=== PATIENT | female | born 1990 | race Caucasian/White ===

== ENCOUNTER 2020-07-14 15:32 | Emergency (ER) | payer OTHER ==
[~2020-07-14] VITALS: Ht 165.1 cm; Wt 95.7 kg
[2020-07-14 16:28] LABS: BASO # 0.1 10^3/uL (0.0-0.2); BASO % 0.7 % (0.0-1.0); EOS # 0.2 10^3/uL (0.0-0.5); EOS % 2.6 % (0.0-3.0); HEMATOCRIT 44.4 % (36.0-47.0); HEMOGLOBIN 14.7 g/dl (12.0-15.5); LYMPH # 2.1 10^3/uL (1.5-5.0); MEAN CORPUSCULAR HEMOGLOBIN 30.8 pg (27.0-33.0); MEAN CORPUSCULAR HGB CONC 33.1 g/dl (32.0-36.5); MEAN CORPUSCULAR VOLUME 92.9 fl (80.0-96.0); MONO # 0.4 10^3/uL (0.0-0.8); MONO % 5.9 % (0.0-5.0); NEUTROPHILS # 4.1 10^3/uL (1.5-8.5); NEUTROPHILS % 60.5 % (36.0-66.0); PLATELET COUNT, AUTOMATED 331 10^3/uL (150-450); RED BLOOD COUNT 4.78 10^6/uL (4.00-5.40); WHITE BLOOD COUNT 6.8 10^3/uL (4.0-10.0)
[2020-07-14 16:55] LABS: ALBUMIN 4.3 GM/DL (3.2-5.2); ALT/SGPT 19 U/L (12-78); BILIRUBIN,DIRECT < 0.1 MG/DL (0.0-0.2); BILIRUBIN,TOTAL 0.3 MG/DL (0.2-1.0); LIPASE 164 U/L (73-393); TOTAL PROTEIN 8.2 GM/DL (6.4-8.2)
--- NOTE | 2020-07-14 19:07 | REPVR ---
PROCEDURE INFORMATION: Exam: US Pelvis Complete, Transabdominal and US Pelvis, Transvaginal Exam date and time: 07/14/2020 6:49 PM Age: 29 years old Clinical indication: Abdominal pain; Right lower quadrant; Additional info: Rlq pain/abn bleeding TECHNIQUE: Imaging protocol: Real-time transabdominal and transvaginal pelvic ultrasound (complete) with image documentation. Transvaginal imaging was used for better evaluation of the endometrium, adnexa, and/or cervix. COMPARISON: No relevant prior studies available. FINDINGS: Uterus/cervix: The uterus is globular in configuration in the margins are not clearly delineated transabdominally. Endovaginally, the uterus is retroverted and retroflexed measuring at least 7.1 x 4 by 5.9 cm. The endometrial stripe measures 0.6 cm in thickness. Right adnexa: Transabdominally, the right ovary measures 2.8 by 3.1 x 2.2 cm. Endovaginally, the right ovary measures 2.7 x 1.6 by 2.2 cm. Multiple follicles are noted. Arterial blood flow demonstrated in the right ovary on pulse Doppler examination. Left adnexa: Transabdominally, the left ovary measures 2.7 x 2.1 by 2.4 cm. Endovaginally, the left ovary measures 1.8 by 3.1 x 2.3 cm and contains multiple subcentimeter follicles. Arterial blood flow seen in the left ovary on pulse Doppler examination. Intraperitoneal space: Small amount of free fluid noted adjacent to the left ovary. Urinary bladder: Transabdominally, the bladder is poorly distended which limits visualization of the uterus and the adnexa. IMPRESSION: 1. Normal ultrasound of the pelvis for menstruating female. Electronically signed by: Leilani Strange On 07/14/2020 19:07:09 PM
[2020-07-14 19:22] VITALS: BP 128/84
== END 2020-07-14 19:25 | disposition home or self-care (01) ==
LOC: M ED 15:32
DX: N92.6 Irregular menstruation, unspecified (principal); K21.9 Gastro-esophageal reflux disease without esophagitis; F32.9 Major depressive disorder, single episode, unspecified; F41.9 Anxiety disorder, unspecified; Z88.1 Allergy status to other antibiotic agents; Z88.2 Allergy status to sulfonamides

== ENCOUNTER 2021-01-16 06:21 | Observation (INO) | payer OTHER ==
[~2021-01-16] VITALS: Ht 165.1 cm; Wt 98.4 kg
[~2021-01-16 06:21] MED LIST: ACETAMINOPHEN 500 MG TAB PO ONE; GABAPENTIN 300 MG CAP PO ONE; LEXA1TAB2 PO; LR 1,000 ML IV ONE; ceFAZolin SOD 2 GM in IV 1 EA IV ONE
[2021-01-16 06:51] LABS: HEMATOCRIT 39.7 % (36.0-47.0); HEMOGLOBIN 13.3 g/dl (12.0-15.5); MEAN CORPUSCULAR HGB CONC 33.5 g/dl (32.0-36.5); MEAN CORPUSCULAR VOLUME 92.5 fl (80.0-96.0); PLATELET COUNT, AUTOMATED 271 10^3/uL (150-450); RED BLOOD COUNT 4.29 10^6/uL (4.00-5.40); WHITE BLOOD COUNT 5.6 10^3/uL (4.0-10.0)
[2021-01-16] MEDS ORDERED: METOCLOPRAMIDE INJ 10MG/2ML VIAL (J2765 PER 1) As Ordered ONE (07:02)
[2021-01-16] MEDS ORDERED: ROCURONIUM BROMIDE 50 MG/5 ML VIAL As Ordered ONE (07:02)
[2021-01-16] MEDS ORDERED: LIDOCAINE 2% INJ 100 MG/5 ML SYRINGE As Ordered ONE (07:02)
[2021-01-16] MEDS ORDERED: propofoL 200 MG/20 ML VIAL As Ordered ONE (07:02)
[2021-01-16] MEDS ORDERED: fentaNYL 100 MCG/2 ML INJECTION (J3010) As Ordered ONE (07:03)
[2021-01-16] MEDS ORDERED: MORPHINE 10 MG/ML 1ML VIAL (J2270) As Ordered ONE (07:03)
[2021-01-16] MEDS ORDERED: MIDAZOLAM INJ 2MG/2ML VIAL (J2250 PER 1MG) As Ordered ONE (07:07)
[2021-01-16] MEDS ORDERED: FLUORESCEIN 10% (100MG/ML) 5 ML VIAL As Ordered ONE (07:08)
[2021-01-16] MEDS ORDERED: BUPIVACAINE HCL 0.5% 30 ML VIAL As Ordered ONE (07:09)
[2021-01-16 07:20] LABS: BLOOD UREA NITROGEN 8 MG/DL (7-18); CARBON DIOXIDE LEVEL 29 MEQ/L (21-32); CHLORIDE LEVEL 109 MEQ/L (98-107); CREATININE FOR GFR 0.82 MG/DL (0.55-1.30); GLOMERULAR FILTRATION RATE > 60.0 (>60); GLUCOSE, FASTING 89 MG/DL (70-100); POTASSIUM SERUM 3.8 MEQ/L (3.5-5.1); SODIUM LEVEL 141 MEQ/L (136-145)
[2021-01-16 07:27] LABS: HCG, SERUM QUALITATIVE NEGATIVE (NEGATIVE)
[2021-01-16] MEDS ORDERED: ONDANSETRON 4MG/2ML VIAL As Ordered ONE ×4 (08:38→10:08)
[2021-01-16] MEDS ORDERED: GLYCOPYRROLATE INJ 0.2 MG/ML 2 ML VIAL As Ordered ONE (09:28)
[2021-01-16] MEDS ORDERED: SUGAMMADEX SODIUM 500 MG/5 ML VIAL (BRIDION) As Ordered ONE (09:48)
[2021-01-16] MEDS ORDERED: KETOROLAC 60MG 2ML VIAL As Ordered ONE (10:04)
[2021-01-16] MEDS ORDERED: PROMETHAZINE 25 MG TAB PO PRN (10:30)
[2021-01-16] MEDS ORDERED: SIMETHICONE 80MG CHEW TAB PO PRN (10:30)
[2021-01-16] MEDS ORDERED: LR 1,000 ML IV SCH (10:55)
[2021-01-16] MEDS ORDERED: ONDANSETRON 4MG/2ML VIAL IV PRN (10:55)
[2021-01-16] MEDS ORDERED: oxyCODONE 5MG TAB PO PRN (10:55)
[2021-01-16] MEDS: LR 1,000 ML IV SCH ×3 (11:15→18:24)
[2021-01-16] MEDS: fentaNYL 100 MCG/2 ML INJECTION (J3010) IV PRN ×2 (11:16→11:33)
[2021-01-16] MEDS ORDERED: METOCLOPRAMIDE INJ 10MG/2ML VIAL (J2765 PER 1) IV PRN (11:50)
[2021-01-16] MEDS ORDERED: PROMETHAZINE INJ 25 MG/ML VIAL (J2550) IV PRN (11:50)
--- NOTE | 2021-01-16 12:23 | RO ---
OPERATIVE NOTE DATE OF OPERATION: 01/16/2021 PREOPERATIVE DIAGNOSIS: Severe dysmenorrhea, menorrhagia, and AZAM 3. POSTOPERATIVE DIAGNOSIS: Severe dysmenorrhea, menorrhagia, and AZAM 3. PROCEDURE: Total laparoscopic hysterectomy and cystoscopy. SURGEON: Yosvany Zuleta DO [employer] K[employer] MAKER: Therese Vu MD ANESTHESIA: General anesthesia. IV FLUIDS: 1300 mL LR. URINE OUTPUT: 200 mL via Murillo catheter. EBL: 75 mL. ANTIBIOTICS: 2 gm Ancef before case start. OPERATIVE FINDINGS: Uterus slightly globular appearing, surgically absent fallopian tubes bilaterally. Normal appearing ovaries. Liver appeared normal. COMPLICATIONS: None. DESCRIPTION OF PROCEDURE: The risks, benefits, indications, and alternatives to the procedure were reviewed with the patient and informed consent was obtained. The patient was taken to the operating room and general anesthesia was obtained without difficulty. The patient was placed in the lithotomy position using gel padded Tim stirrups. The patient's arms were then gently tucked to the sides with padding. The patient was prepped and draped in usual sterile fashion and a murillo catheter was placed to drain the bladder. A surgical time out was then performed and the patient's identity and planned procedure were verified with the operative team. A sterile speculum was then placed into the vagina and the cervix was visualized. The anterior lip of the cervix was then tagged with a stitch of #0 Vicryl suture. A VCARE uterine manipulator with a colpotomy ring was then inserted into the uterus as a means to manipulate the uterus. The speculum was then removed from the patient's vagina. Gloves were then exchanged and attention was turned to the patient's abdomen where 5 mm skin incision was made in the inferior aspect of the umbilicus after injection of Marcaine. A 5 mm trocar and sleeve were then carefully introduced into the peritoneal cavity under direct visualization at a 90-degree angle while tenting up the abdominal wall. Intraperitoneal placement was confirmed under direct visualization and entry pressure was noted to be less than 5 mmHg. A pneumoperitoneum was then obtained with several liters of CO2 gas. Upon entry into the peritoneal cavity, structures immediately below the incision were inspected and found to be free of injury. A survey of the patient's abdomen and pelvis was notable for normal appearing liver. The bowel appeared normal. The uterus was slightly globular appearing. The fallopian tubes were surgically absent. The ovaries were normal in appearance bilaterally. Two additional ports were then placed into the abdomen including a 5 mm one in left lower quadrant and 5 mm one in right lower quadrant. Stabilizing the uterus with the manipulator, the LigaSure device was then used to clamp, cut and ligate the round ligaments bilaterally. The anterior broad ligament was incised along the bladder reflection bilaterally and the bladder was dissected off the lower uterine segment until the endopelvic fascia was visualized. The ureters were identified bilaterally coursing along the lateral pelvic sidewalls and well away from the operative field. The bilateral fallopian tubes were noted to be surgically absent. The uteroovarian ligaments were ligated as close as possible to the uterine corpus with the LigaSure. The pedicles were inspected and excellent hemostasis was noted. The uterine arteries were then identified, skeletonized, electro-dissected, and ligated using the LigaSure electrocautery bilaterally. The uterosacral ligaments and cardinal ligaments were then transected bilaterally using the LigaSure. Excellent hemostasis was assured throughout this process. The anterior and posterior colpotomy was then made with monopolar L-hook. The colpotomy was continued circumferentially around the cervix using the ARE colpotomy ring as guide. The entire cervix and uterus were then successfully amputated from the vagina. Excellent hemostasis was assured. The uterus and cervix were then delivered through the vagina without difficulty. The vaginal cuff was then closed vaginally using #0 Vicryl suture in a running fashion. Additional [id number] sutures of #0 Vicryl were then placed to achieve excellent hemostasis of the vaginal cuff. Irrigation was then performed and the cuff was noted to be hemostatic. The patient's Murillo catheter was then removed. The cystoscope was then primed and advanced through the urethra into the bladder. After distention of the bladder with warm saline, a systematic examination of the bladder was performed. Both ureteral orifices were identified and brisk efflux of urine was noted from each orifice. A survey of the bladder showed no lesions, defects, or sutures confirming there was no injury. The cystoscope was removed and the patient's Murillo catheter was replaced. Gloves were exchanged and attention was turned back to the patient's abdomen which was copiously irrigated. All pedicles were noted to be hemostatic. The ureters were again identified and noted to be vermiculating well away from the operative field. Tisseel fibrin sealant was then applied at the vaginal cuff and all operative pedicles. Excellent hemostasis was noted. The gas was turned off and all CO2 was removed from the patient's abdomen. The trocars were removed under direct visualization and there was no bleeding seen from the trocar sites. The skin incisions were then reapproximated using 4-0 Monocryl suture in a subcuticular fashion. All incision sites were covered with Dermabond. A bimanual exam was then performed and the vagina demonstrated excellent suspension and elevation. The cuff was noted to be hemostatic. A vaginal sweep was performed and confirmed no retained foreign objects remained in the vagina. At the completion of the case, the sponge, instrument, and needle counts were correct x2. The patient was taken to the PACU in stable condition. ANNA
[2021-01-16 13:00] VITALS: BP 122/86
[2021-01-16 14:00] VITALS: BP 127/72
[2021-01-16] MEDS: KETOROLAC 30 MG/ML 1ML VIAL IV SCH ×2 (15:00→21:25)
[2021-01-16 15:42] LABS: HEMATOCRIT 36.2 % (36.0-47.0); HEMOGLOBIN 12.2 g/dl (12.0-15.5); MEAN CORPUSCULAR HEMOGLOBIN 31.4 pg (27.0-33.0); MEAN CORPUSCULAR HGB CONC 33.7 g/dl (32.0-36.5); MEAN CORPUSCULAR VOLUME 93.1 fl (80.0-96.0); PLATELET COUNT, AUTOMATED 251 10^3/uL (150-450); RED BLOOD COUNT 3.89 10^6/uL (4.00-5.40); WHITE BLOOD COUNT 10.2 10^3/uL (4.0-10.0)
[2021-01-16 16:00] VITALS: BP 110/64
[2021-01-16] MEDS: ACETAMINOPHEN 500 MG TAB PO PRN (16:31)
[2021-01-16] MEDS ORDERED: ONDANSETRON 4 MG ORAL DISINTEGRATING TAB PO PRN (16:35)
[2021-01-16 18:00] VITALS: BP 119/78
[2021-01-16 21:20] LABS: HEMATOCRIT 36.2 % (36.0-47.0); HEMOGLOBIN 12.3 g/dl (12.0-15.5); MEAN CORPUSCULAR HEMOGLOBIN 31.5 pg (27.0-33.0); MEAN CORPUSCULAR VOLUME 92.8 fl (80.0-96.0); PLATELET COUNT, AUTOMATED 264 10^3/uL (150-450); WHITE BLOOD COUNT 11.2 10^3/uL (4.0-10.0)
--- NOTE | 2021-01-16 21:31 | IPNPDOC ---
Text Note Date of Service The patient was seen on 01/16/21. NOTE Patient seen this afternoon. POD#0 s/p uncomplicated TLH, cysto this AM. Brisa has had nausea postoperatively and vomited this evening. She slept after a dose of phenergan in the PACU. Her pain is well controlled with PO analgesics. She denies any vaginal bleeding. Vitals - VSS, afebrile, normotensive, non tachycardic General - AAOX3, sitting up in bed, NAD Abdomen - soft, nondistended. Extremities - SCDs in place UO - Appropriate Labs: Pre op H/H ~ --> 5 hours post op ~ --> 10 hours post op ~ Overall Brisa is stable. Continue IV fluids until nausea is controlled and she is PO tolerant. Encourage ambulation. Continue routine post op care. An ticipate DC home tomorrow AM. Song VS,Dominik, I+O VS, Dominik, I+O Laboratory Tests 01/16/21 06:36 01/16/21 15:31 01/16/21 20:44 Vital Signs Date Time Temp Pulse Resp B/P (MAP) Pulse Ox O2 Delivery O2 Flow Rate FiO2 01/16/21 18:00 97.6 68 18 119/78 (92) 96 Room Air 01/16/21 13:00 2.0 JACKIE PANDYA DO Jan 16, 2021 21:31
[2021-01-17 02:00] VITALS: BP 110/82
[2021-01-17] MEDS: LR 1,000 ML IV SCH (02:10)
[2021-01-17] MEDS: KETOROLAC 30 MG/ML 1ML VIAL IV SCH (04:00)
[2021-01-17 06:00] VITALS: BP 112/68
[2021-01-17 06:15] LABS: BASO % 0.3 % (0.0-1.0); EOS # 0.3 10^3/uL (0.0-0.5); EOS % 3.7 % (0.0-3.0); LYMPH # 1.6 10^3/uL (1.5-5.0); LYMPH % 23.7 % (24.0-44.0); MEAN CORPUSCULAR HEMOGLOBIN 30.4 pg (27.0-33.0); MEAN CORPUSCULAR HGB CONC 32.2 g/dl (32.0-36.5); MEAN CORPUSCULAR VOLUME 94.4 fl (80.0-96.0); MONO # 0.7 10^3/uL (0.0-0.8); MONO % 9.9 % (2.0-8.0); NEUTROPHILS # 4.2 10^3/uL (1.5-8.5); PLATELET COUNT, AUTOMATED 217 10^3/uL (150-450); RED BLOOD COUNT 3.39 10^6/uL (4.00-5.40); WHITE BLOOD COUNT 6.8 10^3/uL (4.0-10.0)
[2021-01-17 06:22] LABS: HEMOGLOBIN 10.3 g/dl (12.0-15.5)
[2021-01-17] MEDS: ACETAMINOPHEN 500 MG TAB PO PRN (06:33)
[2021-01-17] MEDS ORDERED: ACET-683 PO (08:00)
[2021-01-17] MEDS ORDERED: IBUP80TA PO (08:00)
--- NOTE | 2021-01-17 08:05 | DS.PDOC ---
Discharge Summary General Date of Admission Jan 16, 2021 at 06:21 Date of Discharge Jan 17, 2021 Discharge Summary HOSPITAL COURSE: Ms. Pichardo is a 30 yo female who underwent an uncomplicated, scheduled total laparoscopic hysterectomy and cystoscopy on 16Jan2021 for severe dysmenorrhea and AZAM III. Her post operative course was unremarkable. On her day of discharge (POD#1 in the AM) she was meeting all appropriate discharge criteria. She was ambulating, voiding, tolerating a regular diet, passing gas, and her pain was well controlled with PO pain medications. DISCHARGE MEDICATIONS: Please see below. ALLERGIES: Please see below. PHYSICAL EXAMINATION ON DISCHARGE: VITAL SIGNS: Please see below. GENERAL: AAOX3, NAD ABDOMINAL EXAMINATION: Abdomen soft, nondistended. Minimal tenderness to pal pation. Bowel sounds present. Laparoscopic port sites well appearing and covered with dermabond. No erythema or induration. EXTREMITIES: No edema PSYCHIATRIC EXAMINATION: Affect appropriate LABORATORY DATA: Please see below. ACTIVITY: Pelvic rest for 6 weeks. No heavy lifting for 6 weeks. DIET: Regular DISCHARGE PLAN: Discharge home DISPOSITION: Discharge home on 16Jan2021 DISCHARGE INSTRUCTIONS: Postoperatively, you should expect significant abdominal soreness and pelvic d iscomfort after a laparoscopic surgery. We will provide oral pain medications, typically an anti-inflammatory (motrin). It is recommended to take the anti- inflammatory medication three times daily, using tylenol as needed in addition. Sometimes, anesthesia can cause constipation, and we recommend using a stool softener, drinking plenty of water, increasing the fiber in your diet, and drinking prune juice if constipation becomes a significant issue. Your surgical incisions are closed with stitches and a surgical glue (dermabond). You may peel the dermabond off yourself in 3-5 days. Bleeding: Some bleeding is expected. Typically, the bleeding should be very light. The bleeding should taper off over the first 2 weeks following surgery. The bleeding may change to a dark brown color. If you have bleeding where you soak a maxi-pad per hour for more than one hour, please contact the clinic or come to the Emergency Room. Precautions: Please contact the [facility] clinic or the Emergency Room after hours for any of the following symptoms, * Fever (temperature > 101F) * Significant pain not controlled with oral pain medications * Heavy vaginal bleeding saturating a pad per hour for 2 hours or more * Significant nausea and vomiting with inability to tolerate any food or medication * Foul-smelling bleeding or vaginal discharge Return to normal: You should be able to resume normal activities and exercise within 6 weeks. You may resume sexual activity 6-8 weeks after surgery unless instructed otherwise by your doctor. ITEMS TO FOLLOWUP ON ON OUTPATIENT: 1. post op appointment in 2 weeks DISCHARGE CONDITION: Stable. TIME SPENT ON DISCHARGE: Greater than 20 minutes. Jackie Zuleta, Vital Signs/I&Os Vital Signs Date Time Temp Pulse Resp B/P (MAP) Pulse Ox O2 Delivery O2 Flow Rate FiO2 01/17/21 06:00 97.4 85 16 112/68 (83) 93 Room Air 01/16/21 13:00 2.0 I&O- Last 24 Hours up to 6 AM 01/17/21 06:00 Intake Total 4905 ml Output Total 920 ml Balance 3985 ml Laboratory Data Labs 24H Laboratory Tests 2 01/16/21 15:31: Nucleated Red Blood Cells % (auto) 0.0 01/16/21 20:44: Nucleated Red Blood Cells % (auto) 0.0 01/17/21 05:29: Nucleated Red Blood Cells % (auto) 0.0, Immature Granulocyte % (Auto) 0.4, Neutrophils (%) (Auto) 62.0, Lymphocytes (%) (Auto) 23.7L, Monocytes (%) (Auto) 9.9H, Eosinophils (%) (Auto) 3.7H, Basophils (%) (Auto) 0.3, Neutrophils # (Auto) 4.2, Lymphocytes # (Auto) 1.6, Monocytes # (Auto) 0.7, Eosinophils # (Auto) 0.3, Basophils # (Auto) 0.0 CBC/BMP Laboratory Tests 01/16/21 15:31 01/16/21 20:44 01/17/21 05:29 Discharge Medications Scheduled Escitalopram Oxalate (Lexapro) 20 Mg Tablet, 20 MG PO DAILY, (Reported) Ibuprofen (Ibuprofen) 800 Mg Tablet, 800 MG PO Q8H Scheduled PRN Acetaminophen (Acetaminophen) 500 Mg Tablet, 1,000 MG PO Q6HP PRN for MODERATE PAIN (PS 5-7) Allergies Coded Allergies: Unclassified (Verified Allergy, Intermediate, UV RAYS- RASH/LIN, 01/16/21) sulfamethoxazole (Verified Allergy, Intermediate, hives, 07/14/20) trimethoprim (Verified Allergy, Intermediate, hives, 07/14/20) JACKIE ZULETA DO Jan 17, 2021 08:05
[2021-01-17] MEDS ORDERED: IBUPROFEN 800 MG TAB PO SCH (18:00)
--- NOTE | 2021-01-18 09:28 | IPNPDOC ---
Text Note Date of Service The patient was seen on 01/18/21. NOTE It was noted upon pathological inspection of the specimen that a small portion of cervix may have been left behind. There was dysplasia on the cervix of the specimen obtained, but margins were negative per pathology. The patient would've required pap smears of her vaginal cuff for 20 years regardless. VS,Fishbone, I+O VS, Fishbone, I+O Vital Signs Date Time Temp Pulse Resp B/P (MAP) Pulse Ox O2 Delivery O2 Flow Rate FiO2 01/17/21 06:00 97.4 85 16 112/68 (83) 93 Room Air 01/16/21 13:00 2.0 I&O- Last 24 Hours up to 6 AM 01/18/21 06:00 Intake Total 0 ml Balance 0 ml JACKIE PANDYA DO Jan 18, 2021 09:28
== END 2021-01-17 08:52 | disposition home or self-care (01) ==
LOC: M OR 06:21 → INTOOBSV 06:21 → M MSPAV 13:08
PROVIDERS: ADMIT Obstetrics & Gynecology; ATTEND Obstetrics & Gynecology
DX: D06.9 Carcinoma in situ of cervix, unspecified (principal); N94.6 Dysmenorrhea, unspecified; N92.0 Excessive and frequent menstruation with regular cycle; A60.09 Herpesviral infection of other urogenital tract; F41.9 Anxiety disorder, unspecified; F32.9 Major depressive disorder, single episode, unspecified; F17.210 Nicotine dependence, cigarettes, uncomplicated; Z88.1 Allergy status to other antibiotic agents; Z88.2 Allergy status to sulfonamides; Z79.899 Other long term (current) drug therapy
CPT/HCPCS: 36415; 58550; 80048; 84703; 85025; 85027; 86850; 86900; 86901; 88307; 96360; 96361; J0690; J1885; J2250; J2270; J2405; J2765; J3010; Q0162

== ENCOUNTER → 2021-08-24 | Outpatient (REF) ==
[~2021-08-24] MED LIST changes: +ACET-683 PO; -ACETAMINOPHEN 500 MG TAB PO ONE; -GABAPENTIN 300 MG CAP PO ONE; +IBUP80TA PO; -LR 1,000 ML IV ONE; -ceFAZolin SOD 2 GM in IV 1 EA IV ONE
== END ==
LOC: M LAB 11:45
PROVIDERS: ATTEND Nurse Practitioner Adult Health
DX: Z02.89 Encounter for other administrative examinations (principal)

== ENCOUNTER → 2021-08-27 | Outpatient (REF) | LOC: M LAB 09:21 | PROVIDERS: ATTEND Nurse Practitioner Adult Health | DX: Z00.00 Encounter for general adult medical examination without abnormal findings (principal) ==

== ENCOUNTER → 2021-09-26 | Outpatient (REF) ==
[2021-09-26 15:42] LABS: RSV AMPLIFICATION NEGATIVE (NEGATIVE)
== END ==
LOC: M EMP 14:29
PROVIDERS: ATTEND Family Medicine
DX: Z11.52 Encounter for screening for COVID-19 (principal)

== ENCOUNTER → 2022-03-01 | Outpatient (REF) | LOC: M EMP 13:04 | PROVIDERS: ATTEND Family Medicine | DX: Z11.52 Encounter for screening for COVID-19 (principal) ==

== ENCOUNTER 2022-03-05 17:10 | Emergency (ER) | payer OTHER ==
[~2022-03-05] VITALS: Ht 165.1 cm; Wt 102.3 kg
[2022-03-05] MEDS ORDERED: COMBIVENT RESPIMAT 100-20MCG INHALER 4GM INH STA (19:20)
[2022-03-05 19:21] LABS: RSV AMPLIFICATION NEGATIVE (NEGATIVE)
[2022-03-05] MEDS ORDERED: COMBAER6 INH (19:42)
[2022-03-05 19:59] VITALS: BP 118/68
== END 2022-03-05 20:01 | disposition home or self-care (01) ==
LOC: M ED 17:10
DX: J06.9 Acute upper respiratory infection, unspecified (principal); B34.9 Viral infection, unspecified; R05.9 Cough, unspecified; K21.9 Gastro-esophageal reflux disease without esophagitis; N93.9 Abnormal uterine and vaginal bleeding, unspecified; F32.A Depression, unspecified; F41.9 Anxiety disorder, unspecified; Z88.2 Allergy status to sulfonamides; Z88.8 Allergy status to other drugs, medicaments and biological substances; Z90.49 Acquired absence of other specified parts of digestive tract; Z90.710 Acquired absence of both cervix and uterus; F17.200 Nicotine dependence, unspecified, uncomplicated; Z79.899 Other long term (current) drug therapy